=== PATIENT | male | born 1960 | race Two or more races ===

== ENCOUNTER → 2025-06-02 | Emergency (ER) | payer OTHER ==
[~2025-06-02] VITALS: Ht 175.3 cm; Wt 89.8 kg
[~2025-06-02] MED LIST: 0.9 % SODIUM CHLORIDE 1,000 ML IV SCH; 8HR ARTHRITIS650 M1 PO; ACETAMINOPHEN 500 MG GEL..CAP PO ONE; ARBLI10 MG/1 ML; CEFTRIAXONE SODIUM 2,000 MG VIAL ONE; CEFTRIAXONE SODIUM 2,000 MG in 0.9 % SODIUM CHLORIDE 100 ML IV ONE; FAMOTIDINE/PF 20 MG in 0.9 % SODIUM CHLORIDE 8 ML IV PUSH ONE; LEVOFLOXACIN750 MG PO; LEVOTHYROXINE25 MCG; NORFLEX100MG PO
[2025-06-02 20:50] LABS: BASO % 0.3 % (0.1-1.2); EOS # 0.05 (0.04-0.54); EOS % 0.5 % (0.7-7.0); LYMPH # 1.06 (1.18-3.74); LYMPH % 9.9 % (19.3-53.1); MEAN PLATELET VOLUME 9.40 fl (9.4-12.4); MONO # 1.07 (0.24-0.82); MONO % 10.0 % (4.7-12.5); NEUT # 8.41 (1.56-6.13); NEUT % 78.8 % (34.0-71.1); RED CELL DISTRIBUTION WIDTH 12.9 % (11.6-14.4)
[2025-06-02 20:51] LABS: ERYTHROCYTE SEDIMENTATION RATE 30 mm/hr (0-20)
[2025-06-02 21:10] LABS: INR 1.04
[2025-06-02 21:13] LABS: ALT/SGPT 26.0 U/L (12-78); AST/SGOT 23.0 U/L (15-37); BILIRUBIN TOTAL 1.41 mg/dL (0.3-1.2); BUN CREA RATIO 12.0 (7.0-25.0); CREATININE SERUM 0.97 mg/dL (0.70-1.30); GFR 77.92; GLOBULINA 4.7 G/DL (2.4-3.5); GLUCOSE FASTING 131.0 mg/dL (65-100); OSMOLALITY SERUM 275.0 MOSM/KG (275-295)
[2025-06-02 21:36] LABS: URINE APPEARANCE Turbid; URINE BILIRRUBIN Negative (NEGATIVE); URINE BLOOD Large; URINE COLOR Orange; URINE GLUCOSE Negative (NEGATIVE); URINE KETONE Negative (NEGATIVE); URINE LEUKOCYTE Small; URINE NITRATE Negative; URINE UROBILINOGEN 0.2 E.U./dl
[2025-06-02 21:39] LABS: URINE BACTERIA 136.1 uL (0.0-1933); URINE RBC 3563.6 uL (0.0-20.8); URINE WBC 45.5 uL (0.0-23.2)
[2025-06-02 21:40] LABS: URINE CAST 0.56 uL (0.0-1.40); URINE EPITHELIAL CELLS 1.3 uL (0.0-38.8); URINE PROTEIN 100 (NEGATIVE)
== END | disposition home or self-care (01) ==
LOC: ER 18:50
PROVIDERS: General Practice
DX: Z90.79 Acquired absence of other genital organ(s) (principal); Z98.890 Other specified postprocedural states; N39.0 Urinary tract infection, site not specified; R33.8 Other retention of urine; R50.9 Fever, unspecified; I10 Essential (primary) hypertension; E03.8 Other specified hypothyroidism; Z91.018 Allergy to other foods; R10.9 Unspecified abdominal pain

== ENCOUNTER → 2025-06-10 | Outpatient (CLI) | payer OTHER ==
[~2025-06-10] MED LIST changes: -0.9 % SODIUM CHLORIDE 1,000 ML IV SCH; -ACETAMINOPHEN 500 MG GEL..CAP PO ONE; -CEFTRIAXONE SODIUM 2,000 MG VIAL ONE; -CEFTRIAXONE SODIUM 2,000 MG in 0.9 % SODIUM CHLORIDE 100 ML IV ONE; -FAMOTIDINE/PF 20 MG in 0.9 % SODIUM CHLORIDE 8 ML IV PUSH ONE
== END | disposition home or self-care (01) ==
LOC: TOM 08:16
PROVIDERS: ATTEND Urology
DX: C61 Malignant neoplasm of prostate (principal)